=== PATIENT | female | born 1940 | race Caucasian/White ===

== ENCOUNTER 2018-02-05 12:50 | Outpatient (REF) | payer MEDICARE, BC, SELFPAY ==
[2018-02-05 20:29] LABS: HCT 40.3 % (36.0-46.0); HGB 13.7 g/dL (12.0-15.5); Mean Corpuscular Hemoglobin 31.8 pg (27.0-33.0); Mean Corpuscular Volume 93.5 fL (80-95); Mean Platelet Volume 13.2 fL (8.0-11.0); Platelet Count 195 x1000/uL (130-400); RBC 4.31 m/cumm (4.00-5.20); White Blood Cell Count 8.34 k/cumm (4.4-10.8)
[2018-02-05 21:01] LABS: ALT 18 U/L (12-78); AST 25 U/L (15-37); Albumin 3.6 g/dL (3.4-5.0); Alkaline Phosphatase 76 U/L (46-116); Anion Gap 7.9 mmol/L (3-11); BUN 22 mg/dL (7-18); Bilirubin, Total 0.4 mg/dL (0.2-1.0); CO2 30.1 mmol/L (21.0-32.0); Calcium 9.1 mg/dL (8.5-10.1); Chloride 104 mmol/L (98-107); Glucose 96 mg/dL (70-100); Potassium 4.5 mmol/L (3.5-5.1); Sodium 142 mmol/L (136-145); TSH 0.51 uIU/mL (0.358-3.74); Total Protein 6.9 g/dL (6.4-8.2)
== END 2018-02-05 13:10 ==
LOC: NCHCN 12:50
PROVIDERS: PCP Internal Medicine; Visit Provider Internal Medicine
DX: M62.81 Muscle weakness (generalized) (principal); E46 Unspecified protein-calorie malnutrition; R63.0 Anorexia; R06.02 Shortness of breath; R68.89 Other general symptoms and signs; R53.82 Chronic fatigue, unspecified; G62.9 Polyneuropathy, unspecified; F41.9 Anxiety disorder, unspecified
CPT/HCPCS: 80053; 82306; 85027; 84443

== ENCOUNTER 2020-04-16 21:55 | Outpatient (REF) | payer MEDICARE, BC, SELFPAY ==
[2020-04-16 22:18] LABS: Bilirubin Negative (Negative); Blood Trace-intact (Negative); Clarity Cloudy (Clear); Glucose Negative (Negative); Ketones Negative (Negative); Leukocyte Esterase Large (Negative); Nitrite Negative (Negative); Specific Gravity 1.025 (1.005-1.025); Urobilinogen 0.2 EU/dL (Up TO 0.2)
[2020-04-16 22:27] LABS: Bacteria Many HPF (Negative); C & S Indicated? C&S Done As Ordered; Casts Negative LPF (Negative); Crystals Negative HPF (Negative); Epithelial Cells Few HPF (Negative); Mucus Negative (Negative); RBC 0-2 HPF (0-2); WBC 20-50 HPF (0-5)
== END 2020-04-16 22:15 ==
LOC: NCHCN 21:55
PROVIDERS: PCP Internal Medicine; Visit Provider Internal Medicine
DX: N39.41 Urge incontinence (principal); R30.0 Dysuria
CPT/HCPCS: 87077; 81003; 81015; 87086; 87186

== ENCOUNTER 2021-03-21 21:22 | Outpatient (REF) | payer MEDICARE, BC, SELFPAY ==
[2021-03-21 19:11] LABS: Bilirubin Negative (Negative); Blood Small (Negative); Clarity Sl Cloudy (Clear); Glucose Negative (Negative); Ketones Negative (Negative); Leukocyte Esterase Moderate (Negative); Nitrite Negative (Negative); Specific Gravity 1.025 (1.005-1.025); Urobilinogen 0.2 EU/dL (Up TO 0.2); pH 5.5 (5-8)
[2021-03-21 19:30] LABS: Epithelial Cells Negative HPF (Negative); Other Cells Moderate Renal (Negative); WBC >50 HPF (0-5)
[2021-03-21 19:31] LABS: Bacteria Few HPF (Negative); C & S Indicated? Yes; Crystals Negative HPF (Negative); Mucus Negative (Negative)
== END 2021-03-21 21:23 | disposition home or self-care (01) ==
LOC: LBN 21:22
PROVIDERS: PCP Internal Medicine; Visit Provider Family Medicine
DX: R30.0 Dysuria (principal)
CPT/HCPCS: 81003; 81015; 87086

== ENCOUNTER 2021-08-10 15:19 | Outpatient (REF) | payer MEDICARE, BC, SELFPAY ==
[2021-08-12 12:57] LABS: COVID-19 RT-PCR UVMMC Result Negative (Negative)
== END 2021-08-10 15:20 | disposition home or self-care (01) ==
LOC: LBN 15:19
PROVIDERS: PCP Internal Medicine; Visit Provider Family Medicine
DX: R07.0 Pain in throat (principal); Z20.822 Contact with and (suspected) exposure to COVID-19
CPT/HCPCS: U0003; U0005